=== PATIENT | male | born 1940 | race Caucasian/White ===

== ENCOUNTER 2018-08-27 22:23 | Emergency (ER) | payer OTHER ==
[~2018-08-27] VITALS: Ht 172.7 cm; Wt 81.6 kg
[~2018-08-27 22:23] MED LIST: ROSU5TAB5 PO; TAM04C PO; VENL37.572 PO; WARF1TAB PO
[2018-08-27] MEDS ORDERED: SODIUM CHLORIDE 0.9% 1,000 ML IV ONE (23:30)
[2018-08-28 00:48] VITALS: BP 112/65
== END 2018-08-28 01:12 | disposition home or self-care (01) ==
LOC: EDBD 22:23 → ER 22:24
DX: S00.01XA Abrasion of scalp, initial encounter (principal); F10.129 Alcohol abuse with intoxication, unspecified; I11.0 Hypertensive heart disease with heart failure; I50.9 Heart failure, unspecified; E78.00 Pure hypercholesterolemia, unspecified; Z88.0 Allergy status to penicillin; Z79.01 Long term (current) use of anticoagulants; Z79.899 Other long term (current) drug therapy; W18.39XA Other fall on same level, initial encounter; Y93.89 Activity, other specified; Y92.89 Other specified places as the place of occurrence of the external cause; Y99.8 Other external cause status; Y90.6 Blood alcohol level of 120-199 mg/100 ml
CPT/HCPCS: 36415; 70450; 72125; 80320; 93005; 99284; J7030

== ENCOUNTER 2022-08-16 12:57 | Observation (INO) | payer OTHER ==
[~2022-08-16] VITALS: Ht 175.3 cm; Wt 57.8 kg
[~2022-08-16 12:57] MED LIST changes: -TAM04C PO; +TAMS-35 PO
[2022-08-16 13:30] LABS: Basophils # (auto) 0 10 ^3/uL (0-0.2); Basophils % (auto) 0.7 % (0.0-2.0); Eosinophils # (auto) 0.1 10 ^3/uL (0-0.8); Eosinophils % (auto) 1.9 % (0.0-7.0); Hematocrit 43.2 % (41.0-53.0); Hemoglobin 14.6 g/dL (13.5-17.5); Lymphocytes # (auto) 1.8 10 ^3/uL (0.4-5.4); Lymphocytes % (auto) 39.9 % (10.0-50.0); Mean Corpuscular Hemoglobin 33.3 pg (28.0-32.0); Mean Corpuscular Hgb Conc. 33.8 g/dL (32.0-36.0); Mean Corpuscular Volume 98.7 fL (80.0-100.0); Monocytes # (auto) 0.5 10 ^3/uL (0-1.3); Monocytes % (auto) 11.6 % (0.0-12.0); Neutrophils # (auto) 2.1 10 ^3/uL (1.6-8.6); Neutrophils % (auto) 45.9 % (37.0-80.0); Nucleated Red Blood Cells % 0.1 %; Red Blood Cells 4.38 10^6/uL (4.5-5.90); Red Cell Distribution Width 14.2 % (11.8-14.3); White Blood Cell 4.6 10^3/uL (4.4-10.8)
[2022-08-16 13:39] LABS: Albumin 3.6 g/dL (3.4-5.0); Anion Gap 4 (5-15); Blood Urea Nitrogen 13 mg/dL (7-18); Calcium 8.5 mg/dL (8.5-10.1); Carbon Dioxide 27 mmol/L (21-32); Chloride 110 mmol/L (98-107); Glucose 82 mg/dL (74-106); Magnesium 2.2 mg/dL (1.6-2.6); Sodium 141 mmol/L (136-145)
[2022-08-16 13:43] LABS: Alanine Aminotransferase 15 U/L (16-61); Alkaline Phosphatase 63 U/L (45-117); Aspartate Aminotransferase 22 U/L (15-37); BUN/Creatinine Ratio 15.1 (10.0-20.0); Bilirubin, Total 0.7 mg/dL (0.2-1.0); Blood Alcohol < 3.0 mg/dL (0-5); Creatine Kinase IFCC 44 U/L (39-308); GFR African American 109 mL/min; GFR Non-African American 90 mL/min; Total Protein 6.8 g/dL (6.4-8.2)
[2022-08-16] MEDS ORDERED: SODIUM CHLORIDE 0.9% 1,000 ML IV ONE (14:30)
[2022-08-16 16:30] LABS: Urine Bacteria NONE SEEN /hpf (None Seen); Urine Blood Negative /uL (Negative); Urine Specific Gravity 1.015 (1.001-1.035); Urine WBC <1 /hpf (0 - 3)
[2022-08-16] MEDS ORDERED: NITROGLYCERIN 0.4 MG SL TAB SL PRN (20:15)
[2022-08-16] MEDS ORDERED: MORPHINE SULFATE INJ 2 MG/ml SYRG IV PRN (20:15)
[2022-08-16] MEDS ORDERED: ONDANSETRON HCL 4 MG/2 ML VIAL IV PRN (20:15)
[2022-08-16] MEDS ORDERED: DOCUSATE SOD 100 MG CAP PO PRN (20:15)
[2022-08-16] MEDS ORDERED: hydrALAZINE HCL 20 MG/ML VL IV PRN (20:15)
[2022-08-17 01:25] VITALS: BP_SYST 134; BP_SYST 136; BP_SYST 138; BP_DIAS 76; BP_DIAS 84; BP_DIAS 95
[2022-08-17 05:30] VITALS: BP_SYST 115; BP_DIAS 53; BP_DIAS 62
[2022-08-17 07:20] LABS: Calcium 7.7 mg/dL (8.5-10.1); Potassium 3.4 mmol/L (3.5-5.1)
[2022-08-17 07:21] LABS: Basophils # (auto) 0 10 ^3/uL (0-0.2); Eosinophils # (auto) 0.1 10 ^3/uL (0-0.8); Lymphocytes # (auto) 1.7 10 ^3/uL (0.4-5.4); Monocytes # (auto) 0.5 10 ^3/uL (0-1.3); Red Cell Distribution Width 14.2 % (11.8-14.3)
[2022-08-17 07:22] LABS: BUN/Creatinine Ratio 21.9 (10.0-20.0)
[2022-08-17 07:27] LABS: INR 1.08 (0.9-1.15)
[2022-08-17 07:28] LABS: Eosinophils % (auto) 3.3 % (0.0-7.0); Hematocrit 38.5 % (41.0-53.0); Hemoglobin 13.2 g/dL (13.5-17.5); Lymphocytes % (auto) 41.9 % (10.0-50.0); Mean Corpuscular Hemoglobin 33.6 pg (28.0-32.0); Mean Corpuscular Hgb Conc. 34.3 g/dL (32.0-36.0); Monocytes % (auto) 12.7 % (0.0-12.0); Neutrophils # (auto) 1.7 10 ^3/uL (1.6-8.6); Neutrophils % (auto) 41.1 % (37.0-80.0); Nucleated Red Blood Cells % 0.3 %; Red Blood Cells 3.93 10^6/uL (4.5-5.90)
[2022-08-17 09:00] VITALS: BP 122/77
[2022-08-17] MEDS: TAMSULOSIN HYDROCHLORIDE 0.4 MG CAP PO SCH (10:06)
[2022-08-17] MEDS: ENOXAPARIN SOD 40 MG/0.4 ML SYRINGE SC SCH (10:06)
[2022-08-17] MEDS: ACETAMINOPHEN 325 MG TAB PO PRN (11:12)
[2022-08-17 13:00] VITALS: BP 96/45
[2022-08-17 16:34] VITALS: BP 137/89
[2022-08-17] MEDS ORDERED: SODIUM CHLORIDE 0.9% 1,000 ML IV SCH (17:00)
[2022-08-17 17:20] LABS: Cholesterol 144 mg/dL (< 200)
[2022-08-17 17:22] LABS: HDL Cholesterol 67 mg/dL (40-59); LDL Cholesterol 64 mg/dL (< 100); Triglycerides 85 mg/dL (< 150)
[2022-08-17] MEDS ORDERED: IOHEXOL 350 MG/ML 100ML IJ ONE (18:25)
[2022-08-17 22:00] VITALS: BP_SYST 105; BP_SYST 139; BP_DIAS 73; BP_DIAS 80
[2022-08-17] MEDS ORDERED: ATORVASTATIN 20 MG TAB PO SCH (22:00)
[2022-08-18 05:54] VITALS: BP 141/68
[2022-08-18 06:30] LABS: Potassium 3.5 mmol/L (3.5-5.1)
[2022-08-18 06:52] LABS: Basophils # (auto) 0 10 ^3/uL (0-0.2); Basophils % (auto) 0.6 % (0.0-2.0); Eosinophils # (auto) 0.1 10 ^3/uL (0-0.8); Eosinophils % (auto) 1.8 % (0.0-7.0); Hematocrit 37.6 % (41.0-53.0); Hemoglobin 12.9 g/dL (13.5-17.5); Lymphocytes # (auto) 1.3 10 ^3/uL (0.4-5.4); Lymphocytes % (auto) 37.9 % (10.0-50.0); Mean Corpuscular Hemoglobin 33.6 pg (28.0-32.0); Mean Corpuscular Hgb Conc. 34.4 g/dL (32.0-36.0); Mean Corpuscular Volume 97.7 fL (80.0-100.0); Monocytes # (auto) 0.4 10 ^3/uL (0-1.3); Monocytes % (auto) 12.6 % (0.0-12.0); Neutrophils # (auto) 1.6 10 ^3/uL (1.6-8.6); Neutrophils % (auto) 47.1 % (37.0-80.0); Nucleated Red Blood Cells % 0.4 %; Red Blood Cells 3.85 10^6/uL (4.5-5.90); White Blood Cell 3.5 10^3/uL (4.4-10.8)
[2022-08-18] MEDS: ACETAMINOPHEN 325 MG TAB PO PRN (07:16)
[2022-08-18 09:00] VITALS: BP 146/66
[2022-08-18] MEDS ORDERED: CLOPIDOGREL BISULFATE 75 MG TAB PO SCH (10:00)
[2022-08-18] MEDS ORDERED: ASPirin-EC 81 mg tab PO SCH (10:00)
[2022-08-18] MEDS: ENOXAPARIN SOD 40 MG/0.4 ML SYRINGE SC SCH (10:15)
[2022-08-18] MEDS: TAMSULOSIN HYDROCHLORIDE 0.4 MG CAP PO SCH (10:15)
[2022-08-18] MEDS ORDERED: ATOR20TA50 PO (10:39)
[2022-08-18] MEDS ORDERED: ASPI-543 PO (10:39)
[2022-08-18] MEDS ORDERED: CLOP75TA70 PO (10:39)
== END 2022-08-18 12:08 | disposition home or self-care (01) ==
LOC: ER 12:57 → EDBD 12:57 → TELE 20:47 → UNDOADMIN 20:47 → TELE 20:47 → TELE-WESTW 23:55 → UNDODISIN 08-18 12:15
PROVIDERS: ADMIT Nurse Practitioner Family; ATTEND Nurse Practitioner Family
DX: G93.41 Metabolic encephalopathy (principal); R55 Syncope and collapse; G30.9 Alzheimer's disease, unspecified; F02.80 Dementia in other diseases classified elsewhere, unspecified severity, without behavioral disturbance, psychotic disturbance, mood disturbance, and anxiety; I63.9 Cerebral infarction, unspecified; I48.91 Unspecified atrial fibrillation; I11.0 Hypertensive heart disease with heart failure; I50.9 Heart failure, unspecified; E78.5 Hyperlipidemia, unspecified; I48.0 Paroxysmal atrial fibrillation; N40.0 Benign prostatic hyperplasia without lower urinary tract symptoms; R42 Dizziness and giddiness; R53.1 Weakness; R62.7 Adult failure to thrive; R29.700 NIHSS score 0; R41.82 Altered mental status, unspecified; Z79.82 Long term (current) use of aspirin; Z79.01 Long term (current) use of anticoagulants; Z79.899 Other long term (current) drug therapy; Z98.890 Other specified postprocedural states
CPT/HCPCS: 36415; 70450; 70551; 71045; 72125; 74176; 80048; 80053; 80061; 80320; 81001; 82550; 83036; 83605; 83735; 83880; 84484; 85025; 85610; 85730; 93005; 93306; 96360; 96361; 96372; 97163; 99285; G0378; J1650; J7030; Q9967

== ENCOUNTER 2023-05-06 17:29 | Emergency (ER) | payer OTHER ==
[~2023-05-06] VITALS: Ht 167.6 cm; Wt 63.6 kg
[~2023-05-06 17:29] MED LIST changes: +ASPI-543 PO; +ATOR20TA50 PO; +CLOP75TA70 PO; -ROSU5TAB5 PO; -TAMS-35 PO; -VENL37.572 PO; -WARF1TAB PO
[2023-05-06 20:51] VITALS: BP 153/84; PULSE 64; RESP 16; TEMP 98.1; O2SAT 100
== END 2023-05-06 21:26 | disposition home or self-care (01) ==
LOC: ER 17:29 → EDBD 17:29 → ER 20:51
DX: R07.81 Pleurodynia (principal); F03.90 Unspecified dementia, unspecified severity, without behavioral disturbance, psychotic disturbance, mood disturbance, and anxiety; I11.0 Hypertensive heart disease with heart failure; I50.9 Heart failure, unspecified; E78.5 Hyperlipidemia, unspecified; Z88.0 Allergy status to penicillin
CPT/HCPCS: 71045